=== PATIENT | female | born 1995 | race Caucasian/White ===

== ENCOUNTER 2023-01-09 21:52 | Inpatient (IN) | payer MEDICAID, OTHER ==
[~2023-01-09] VITALS: Ht 170.2 cm; Wt 68.0 kg
[2023-01-09 22:34] LABS: BASOPHILS % (AUTO) 0.2 % (0.0-2.0); EOSINOPHILS % (AUTO) 0.6 % (1.0-6.0); HEMATOCRIT 41.5 % (36-46); HEMOGLOBIN 13.7 g/dL (12.0-16.0); LYMPHOCYTES # (AUTO) 3.2 K/uL (1.0-4.8); LYMPHOCYTES % (AUTO) 21.9 % (22.0-44.0); MEAN CORPUSCULAR HEMOGLOBIN 30.1 pg (26.0-34.0); MEAN CORPUSCULAR HGB CONC 33.1 G/dL (31.0-37.0); MEAN CORPUSCULAR VOLUME 91 fL (80-100); MONOCYTES # (AUTO) 1.3 K/uL (0.1-1.0); NEUTROPHILS % (AUTO) 68.3 % (40.0-70.0); PLATELET COUNT (AUTO) 406 K/uL (150-450); RED BLOOD CELL COUNT(AUTO) 4.56 MIL/uL (4.00-5.20); RED CELL DISTRIBUTION WIDTH 12.7 % (11.5-14.5); WHITE BLOOD COUNT (AUTO) 14.7 K/uL (4.5-11.0)
[2023-01-09 22:40] LABS: ANION GAP 11 mmol/L (8-16); CALCIUM, TOTAL 9.5 mg/dL (8.8-10.5); CARBON DIOXIDE 25 mmol/L (22-29); CHLORIDE 103 mmol/L (98-107); CREATININE 0.66 mg/dL (0.60-1.30); GLOMERULAR FILTR. RATE CALC > 60 mL/min (>60); GLUCOSE,RANDOM 103 mg/dL (70-110); POTASSIUM 3.6 mmol/L (3.5-5.1); SODIUM SERUM 139 mmol/L (136-145); UREA NITROGEN, BLOOD 11 mg/dL (7-18)
[2023-01-09 22:46] LABS: ALANINE AMINOTRANSFERASE 22 U/L (12-78); ALBUMIN 4.1 g/dL (3.4-5.0); ALKALINE PHOSPHATASE 68 U/L (46-116); ASPARTATE AMINOTRANSFERASE 40 U/L (15-37); BILIRUBIN,TOTAL 0.4 mg/dL (0.1-1.0); TOTAL PROTEIN, SERUM 7.9 g/dL (6.4-8.2)
[2023-01-09 22:48] LABS: COVID AG,FIA SOURCE NASAL SWAB
[2023-01-09 22:59] LABS: ALCOHOL, BLOOD (SERUM) < 3 mg/dL (0-10)
[2023-01-09 23:09] LABS: SARS-COV2 (COVID) ANTIGEN,FIA Negative (Negative)
[2023-01-10] MEDS ORDERED: ZOLPIDEM TARTRATE 10 MG TABLET PO PRN (03:30)
[2023-01-10] MEDS ORDERED: LORazepam 2 MG TABLET PO PRN (03:30)
[2023-01-10] MEDS ORDERED: HALOPERIDOL 5 MG TABLET PO PRN (03:30)
[2023-01-10 11:43] LABS: APPEARANCE,URINE CLEAR (CLEAR); BILIRUBIN,URINE NEGATIVE (NEGATIVE); COLOR,URINE LIGHT YELLOW (YELLOW); GLUCOSE, URINE (UA) NEGATIVE (NEGATIVE); KETONES,URINE NEGATIVE (NEGATIVE); LEUKOCYTE ESTERASE ,URINE NEGATIVE (NEGATIVE); NITRATE,URINE NEGATIVE (NEGATIVE); OCCULT BLOOD,URINE NEGATIVE (NEGATIVE); PH,URINE 6.5 (5.0-8.0); PROTEIN,URINE NEGATIVE (NEGATIVE); SPECIFIC GRAVITIY, URINE 1.021 (1.003-1.030); UROBILINOGEN,URINE <=1.0 mg/dL (<=1.0)
[2023-01-10 11:50] LABS: PH,URINE DRUG SCREEN 6.5 (5.0-8.0)
[2023-01-10 11:53] LABS: ALCOHOL, URINE DRUG SCREEN NEGATIVE (NEGATIVE); AMPHET/METH SCREEN,URINE NEGATIVE (NEGATIVE); BARBITURATE SCREEN, URINE NEGATIVE (NEGATIVE); BENZODIAZEPINES SCREEN,URINE NEGATIVE (NEGATIVE); CANNABINOID SCREEN,URINE NEGATIVE (NEGATIVE); COCAINE SCREEN,URINE NEGATIVE (NEGATIVE); METHADONE SCREEN, URINE NEGATIVE (NEGATIVE); OPIATE SCREEN,URINE NEGATIVE (NEGATIVE); PHENCYCLIDINE SCREEN,URINE NEGATIVE (NEGATIVE)
[2023-01-10 18:48] VITALS: BP 133/69; PULSE 88; RESP 18; TEMP 98; O2SAT 100
[2023-01-10 20:00] VITALS: BP 133/96; PULSE 65; RESP 18; TEMP 98; O2SAT 99
[2023-01-11 09:42] VITALS: BP 129/70; PULSE 133; RESP 18; TEMP 97.9; O2SAT 99
[2023-01-11] MEDS: OLANZapine 7.5 MG TABLET PO SCH ×2 (11:44→20:09)
[2023-01-11 20:03] VITALS: BP 110/71; PULSE 96; RESP 17; TEMP 98; O2SAT 98
[2023-01-12 08:40] VITALS: BP 109/68; PULSE 100; RESP 18; TEMP 98.2; O2SAT 100
[2023-01-12] MEDS: OLANZapine 7.5 MG TABLET PO SCH (09:54)
[2023-01-12] MEDS ORDERED: OLAN7.5T22 PO (10:26)
[2023-01-12 20:37] VITALS: BP 119/67; PULSE 80; RESP 19; TEMP 98.3; O2SAT 100
== END 2023-01-12 19:00 | disposition home or self-care (01) | DRG 750 ==
LOC: EMS 21:53 → B3A 01-10 16:19
PROVIDERS: ADMIT Psychiatry & Neurology Child & Adolescent Psychiatry; ATTEND Psychiatry & Neurology Child & Adolescent Psychiatry
DX: F20.9 Schizophrenia, unspecified (principal); D72.829 Elevated white blood cell count, unspecified; E87.6 Hypokalemia; G47.00 Insomnia, unspecified; R74.01 Elevation of levels of liver transaminase levels; F10.10 Alcohol abuse, uncomplicated; Z20.822 Contact with and (suspected) exposure to COVID-19; F19.10 Other psychoactive substance abuse, uncomplicated
CPT/HCPCS: 80053; 80307; 81003; 84703; 85025; 99285; G0480